=== PATIENT | male | born 1965 | race Two or more races ===

== ENCOUNTER → 2017-09-27 | Outpatient (CLI) | payer OTHER ==
[~2017-09-27] VITALS: Ht 152.4 cm; Wt 89.8 kg
[~2017-09-27] MED LIST: AMOX1TAB12 PO; BUCALSEP SPRAY30 ML MM; DOXYCYCLINE HY100 MG PO; HYDROCHLOROTH12.5 M1; HYDROCHLOROTH12.5 M1 PO; LOTREL 5-20 MG1 CAP; LOTREL 5-20 MG1 CAP PO; ZITHROMAX200 MG PO; ZOCOR20 MG PO
== END | disposition home or self-care (01) ==
LOC: PPHC 09:02
DX: I10 Essential (primary) hypertension (principal); E78.4 Other hyperlipidemia

== ENCOUNTER 2018-04-13 10:16 | Outpatient (CLI) | payer OTHER | END 2018-04-13 10:22 | disposition home or self-care (01) | LOC: RAD 10:16 | DX: M54.2 Cervicalgia (principal) ==

== ENCOUNTER 2018-04-16 09:06 | Emergency (ER) | payer OTHER ==
[~2018-04-16] VITALS: Ht 165.1 cm; Wt 90.7 kg
[2018-04-16] MEDS ORDERED: MEDROLPACK PO (14:06)
== END 2018-04-16 14:17 | disposition home or self-care (01) ==
LOC: ER 09:06
DX: M62.838 Other muscle spasm (principal); I10 Essential (primary) hypertension

== ENCOUNTER 2018-06-16 10:22 | Outpatient (CLI) | payer OTHER ==
[~2018-06-16 10:22] MED LIST changes: +MEDROLPACK PO
== END 2018-06-16 10:26 | disposition home or self-care (01) ==
LOC: RAD 10:22
DX: M43.12 Spondylolisthesis, cervical region (principal)

== ENCOUNTER 2018-10-24 14:31 | Outpatient (CLI) | payer OTHER | END 2018-10-24 15:14 | disposition home or self-care (01) | LOC: MRI 14:31 | DX: M75.102 Unspecified rotator cuff tear or rupture of left shoulder, not specified as traumatic (principal); M89.012 Algoneurodystrophy, left shoulder | CPT/HCPCS: 73221 ==

== ENCOUNTER → 2019-02-12 | Emergency (ER) | payer OTHER ==
[~2019-02-12] VITALS: Ht 165.1 cm; Wt 90.7 kg
[~2019-02-12] MED LIST changes: +MEDROL4 MG PO
== END | disposition home or self-care (01) ==
LOC: ER 22:42
DX: M75.82 Other shoulder lesions, left shoulder (principal)

== ENCOUNTER 2019-04-09 07:57 | Outpatient (CLI) | payer OTHER | END 2019-04-09 08:15 | disposition home or self-care (01) | LOC: LAB 07:57 | DX: Z00.00 Encounter for general adult medical examination without abnormal findings (principal); E78.49 Other hyperlipidemia; E55.9 Vitamin D deficiency, unspecified ==

== ENCOUNTER 2019-07-29 23:59 | Emergency (ER) | payer OTHER ==
[~2019-07-29] VITALS: Ht 167.6 cm; Wt 95.3 kg
[2019-07-30] MEDS ORDERED: PROMETH-CODEIN 65 ML PO (02:42)
== END 2019-07-30 03:51 | disposition home or self-care (01) ==
LOC: ER 23:59
DX: R05 Cough (principal)

== ENCOUNTER 2019-08-18 11:35 | Emergency (ER) | payer OTHER ==
[~2019-08-18] VITALS: Ht 165.1 cm; Wt 95.3 kg
[~2019-08-18 11:35] MED LIST changes: +PROMETH-CODEIN 65 ML PO
== END 2019-08-18 17:44 | disposition home or self-care (01) ==
LOC: ER 11:35
DX: J11.1 Influenza due to unidentified influenza virus with other respiratory manifestations (principal)

== ENCOUNTER 2019-12-05 11:07 | Outpatient (CLI) | payer OTHER | END 2019-12-05 11:10 | disposition home or self-care (01) | LOC: LAB 11:07 | DX: J11.1 Influenza due to unidentified influenza virus with other respiratory manifestations (principal); J06.9 Acute upper respiratory infection, unspecified ==

== ENCOUNTER 2020-03-27 09:08 | Outpatient (CLI) | payer OTHER | END 2020-03-27 15:00 | disposition home or self-care (01) | LOC: LAB 09:08 | PROVIDERS: ATTEND General Practice | DX: Z00.8 Encounter for other general examination (principal); R10.30 Lower abdominal pain, unspecified; I10 Essential (primary) hypertension ==

== ENCOUNTER 2020-03-27 11:26 | Outpatient (CLI) | payer OTHER | END 2020-03-27 15:35 | disposition home or self-care (01) | LOC: SONOGRAMA 11:26 | PROVIDERS: ATTEND General Practice | DX: R10.30 Lower abdominal pain, unspecified (principal) ==

== ENCOUNTER 2020-04-01 09:34 | Outpatient (CLI) | payer OTHER | END 2020-04-01 09:46 | disposition home or self-care (01) | LOC: MRI 09:34 | PROVIDERS: ATTEND General Practice | DX: R93.2 Abnormal findings on diagnostic imaging of liver and biliary tract (principal) | CPT/HCPCS: 74183 ==

== ENCOUNTER 2020-08-05 08:15 | Outpatient (CLI) | payer OTHER | END 2020-08-05 08:21 | disposition home or self-care (01) | LOC: LAB 08:15 | PROVIDERS: ATTEND Internal Medicine | DX: D64.89 Other specified anemias (principal); R10.84 Generalized abdominal pain; E03.8 Other specified hypothyroidism; E78.49 Other hyperlipidemia; R80.8 Other proteinuria; E11.9 Type 2 diabetes mellitus without complications; R73.09 Other abnormal glucose ==

== ENCOUNTER 2021-07-13 08:01 | Emergency (ER) | payer OTHER ==
[~2021-07-13] VITALS: Ht 165.1 cm; Wt 98.4 kg
== END 2021-07-13 10:13 | disposition home or self-care (01) ==
LOC: ER 08:01
DX: B34.9 Viral infection, unspecified (principal); Z03.818 Encounter for observation for suspected exposure to other biological agents ruled out

== ENCOUNTER 2021-07-16 08:05 | Emergency (ER) | payer OTHER ==
[~2021-07-16] VITALS: Ht 165.1 cm; Wt 97.5 kg
[2021-07-16] MEDS ORDERED: IPRAT-ALBUT 0.5-3 ML IH (11:45)
[2021-07-16] MEDS ORDERED: BUDESONIDE0.5 MG/2 M IH (11:45)
[2021-07-16] MEDS ORDERED: MUCINEX DM ER1 EAC1 PO (11:45)
[2021-07-16] MEDS ORDERED: ZITHROMAX500 MG PO (11:45)
[2021-07-16] MEDS ORDERED: PROMETH-CODEIN 65 ML PO (11:45)
[2021-07-16] MEDS ORDERED: MEDROLPACK PO (11:45)
== END 2021-07-16 11:58 ==
LOC: ER 08:05
DX: J16.8 Pneumonia due to other specified infectious organisms (principal); J98.01 Acute bronchospasm; Z03.818 Encounter for observation for suspected exposure to other biological agents ruled out; I10 Essential (primary) hypertension

== ENCOUNTER → 2021-08-25 08:00 | Outpatient (CLI) | payer OTHER ==
[~2021-08-25 08:00] MED LIST changes: +BUDESONIDE0.5 MG/2 M IH; +IPRAT-ALBUT 0.5-3 ML IH; +MUCINEX DM ER1 EAC1 PO; +ZITHROMAX500 MG PO
== END | disposition home or self-care (01) ==
LOC: PPH VACUNA 08:00
PROVIDERS: ATTEND Emergency Medicine Pediatric Emergency Medicine
DX: Z23 Encounter for immunization (principal)

== ENCOUNTER 2021-10-30 07:45 | Outpatient (CLI) | payer OTHER | END 2021-10-30 07:49 | disposition home or self-care (01) | LOC: LAB 07:45 | PROVIDERS: ATTEND General Practice | DX: E78.5 Hyperlipidemia, unspecified (principal); Z00.00 Encounter for general adult medical examination without abnormal findings; E55.9 Vitamin D deficiency, unspecified; N39.0 Urinary tract infection, site not specified; R42 Dizziness and giddiness; R10.2 Pelvic and perineal pain; Z12.5 Encounter for screening for malignant neoplasm of prostate ==

== ENCOUNTER 2022-01-07 08:33 | Emergency (ER) | payer OTHER ==
[~2022-01-07] VITALS: Ht 165.1 cm; Wt 95.3 kg
[2022-01-07] MEDS ORDERED: COZAAR25 MG PO (08:41)
[2022-01-07] MEDS ORDERED: AMOX-CLAV 875-1 EACH PO (10:54)
[2022-01-07] MEDS ORDERED: KETO10TA2 PO (10:54)
[2022-01-07] MEDS ORDERED: MEDROLPACK PO (11:01)
== END 2022-01-07 11:35 | disposition home or self-care (01) ==
LOC: ER 08:33
DX: K12.2 Cellulitis and abscess of mouth (principal); Z20.822 Contact with and (suspected) exposure to COVID-19

== ENCOUNTER 2022-03-16 16:31 | Outpatient (CLI) | payer OTHER ==
[~2022-03-16 16:31] MED LIST changes: +AMOX-CLAV 875-1 EACH PO; +COZAAR25 MG PO; +KETO10TA2 PO
== END 2022-03-16 16:37 | disposition home or self-care (01) ==
LOC: LAB 16:31
PROVIDERS: ATTEND General Practice
DX: Z20.822 Contact with and (suspected) exposure to COVID-19 (principal)

== ENCOUNTER 2022-06-20 08:09 | Emergency (ER) | payer OTHER ==
[~2022-06-20] VITALS: Ht 165.1 cm; Wt 90.7 kg
[2022-06-20] MEDS ORDERED: HYDROCHLOROTH12.5 MG PO (08:21)
[2022-06-20] MEDS ORDERED: LOTREL 5-20 MG1 CAP PO (08:21)
[2022-06-20] MEDS ORDERED: CLEOCIN HCL300 MG PO (08:59)
== END 2022-06-20 09:15 | disposition home or self-care (01) ==
LOC: ER 08:09
DX: L60.0 Ingrowing nail (principal); I10 Essential (primary) hypertension

== ENCOUNTER 2022-12-19 07:36 | Emergency (ER) | payer OTHER ==
[~2022-12-19] VITALS: Ht 165.1 cm; Wt 93.0 kg
[~2022-12-19 07:36] MED LIST changes: +CLEOCIN HCL300 MG PO; +HYDROCHLOROTH12.5 MG PO
[2022-12-19] MEDS ORDERED: BENZONATATE200 M1 PO (10:37)
[2022-12-19] MEDS ORDERED: ALBUTEROL0.63 MG/3 IH (11:41)
== END 2022-12-19 12:05 | disposition home or self-care (01) ==
LOC: ER 07:36
DX: R05.8 Other specified cough (principal); R09.3 Abnormal sputum

== ENCOUNTER 2023-07-03 15:47 | Inpatient (IN) | payer OTHER ==
[~2023-07-03] VITALS: Ht 167.6 cm; Wt 95.3 kg
[~2023-07-03 15:47] MED LIST changes: +ALBUTEROL0.63 MG/3 IH; +BENZONATATE200 M1 PO
[2023-07-03] MEDS ORDERED: TAMS0.4C PO (16:27)
[2023-07-03 18:00] LABS: HEMATOCRIT 43.3 % (39.0-48.0); HEMOGLOBIN 14.2 g/dL (13-16.00); MEAN CELL VOLUME 85.3 fL (80.0-100.00); MEAN CORPUSCULAR HEMOGLOBIN 28.1 pg (27.00-32.0); MEAN CORPUSCULAR HGB CONC 32.9 g/dl (32.0-36.0); PLATELET COUNT 352 K/uL (150-450); RED BLOOD COUNT 5.08 M/uL (4.00-6.00); RED CELL DISTRIBUTION WIDTH 13.6 % (11.5-14.5)
[2023-07-03 18:20] LABS: ABG PH 7.411 (7.35-7.45); ABG pCO2 44.1 mmHg (35-45); BASE EXCESS 2.3 mmol/l; BICARBONATE 27.4 mmol/l (23-25); SaO2 93.1 %; Tco2 28.8 mmol/l
[2023-07-03 18:25] LABS: CALCIUM 9.5 mg/dL (8.5-10.1); CREATININE SERUM 1.11 mg/dL (0.70-1.30); GFR 68.28; POTASSIUM 4.1 mEq/L (3.5-5.1)
[2023-07-03 18:36] LABS: allen test SATISFACTORY; o2 21 %; puncture site RADIAL RIGHT
[2023-07-03 18:51] LABS: URINE APPEARANCE Clear; URINE BILIRRUBIN Negative (NEGATIVE); URINE BLOOD Negative; URINE COLOR Yellow; URINE GLUCOSE Negative (NEGATIVE); URINE LEUKOCYTE Negative; URINE NITRATE Negative; URINE PROTEIN Negative (NEGATIVE)
[2023-07-03 18:59] LABS: URINE WBC 0.7 uL (0.0-23.2)
[2023-07-03 19:00] LABS: URINE BACTERIA 2.5 uL (0.0-1933)
[2023-07-04 00:04] LABS: ABG PH 7.394 (7.35-7.45); ABG PO2 84.6 mmHg (80-100); ABG pCO2 42.5 mmHg (35-45); BASE EXCESS 0.3 mmol/l; BICARBONATE 25.4 mmol/l (23-25); SaO2 96.3 %; Tco2 26.7 mmol/l
[2023-07-04 00:57] LABS: INR 1.02; PARTIAL THROMBOPLASTIN TIME 31.8 SECONDS (22.0-34.0); PROTHROMBIN TIME 10.7 SECONDS (9.0-11.5)
[2023-07-04 05:22] LABS: allen test SATISFACTORY; o2 35 %; puncture site RADIAL LEFT
[2023-07-07 11:24] LABS: ABG PH 7.368 (7.35-7.45); ABG PO2 82.8 mmHg (80-100); ABG pCO2 42.7 mmHg (35-45); BASE EXCESS -1.4 mmol/l; SaO2 95.6 %; Tco2 25.3 mmol/l
[2023-07-07 14:44] LABS: allen test SATISFACTORY; o2 21 %; puncture site RADIAL LEFT
[2023-07-10 07:07] LABS: HEMATOCRIT 43.2 % (39.0-48.0); HEMOGLOBIN 14.8 g/dL (13-16.00); MEAN CELL VOLUME 84.1 fL (80.0-100.00); MEAN CORPUSCULAR HEMOGLOBIN 28.9 pg (27.00-32.0); MEAN CORPUSCULAR HGB CONC 34.3 g/dl (32.0-36.0); PLATELET COUNT 473 K/uL (150-450); RED BLOOD COUNT 5.14 M/uL (4.00-6.00); RED CELL DISTRIBUTION WIDTH 13.8 % (11.5-14.5)
[2023-07-10 07:37] LABS: ALBUMIN 3.8 gm/dL (3.4-5.0); BILIRUBIN TOTAL 0.41 mg/dL (0.3-1.2); CALCIUM 9.7 mg/dL (8.5-10.1); CREATININE SERUM 1.12 mg/dL (0.70-1.30); GFR 67.58; GLOBULINA 4.1 G/DL (2.4-3.5); POTASSIUM 4.44 mEq/L (3.5-5.1); TOTAL PROTEIN 7.9 gm/dL (6.4-8.2)
[2023-07-10 07:48] LABS: C-REACTIVE PROTEIN 0.51 MG/DL (0.00-0.29)
[2023-07-10] MEDS ORDERED: MEDROLPACK PO (19:02)
[2023-07-10] MEDS ORDERED: Tussi-Organidin Dm-S PO (19:02)
== END 2023-07-10 19:53 | disposition home or self-care (01) | DRG 194 ==
LOC: ER 15:47 → SURH 22:55
PROVIDERS: General Practice; Specialist; ADMIT Internal Medicine; ATTEND Internal Medicine
PROC: BW24ZZZ Computerized Tomography (CT Scan) of Chest and Abdomen (ICD-10-PCS; principal; 2023-07-03)
PROC: 4A12X4Z Monitoring of Cardiac Electrical Activity, External Approach (ICD-10-PCS; 2023-07-08)
DX: J10.00 Influenza due to other identified influenza virus with unspecified type of pneumonia (principal); J45.901 Unspecified asthma with (acute) exacerbation; E86.0 Dehydration; I10 Essential (primary) hypertension; N40.0 Benign prostatic hyperplasia without lower urinary tract symptoms; Z20.822 Contact with and (suspected) exposure to COVID-19

== ENCOUNTER 2023-09-24 09:32 | Emergency (ER) | payer OTHER ==
[~2023-09-24] VITALS: Ht 165.1 cm; Wt 93.0 kg
[~2023-09-24 09:32] MED LIST changes: +TAMS0.4C PO; +Tussi-Organidin Dm-S PO
[2023-09-24 11:48] LABS: HEMATOCRIT 39.6 % (39.0-48.0); HEMOGLOBIN 13.6 g/dL (13-16.00); MEAN CELL VOLUME 83.2 fL (80.0-100.00); MEAN CORPUSCULAR HEMOGLOBIN 28.5 pg (27.00-32.0); MEAN CORPUSCULAR HGB CONC 34.3 g/dl (32.0-36.0); PLATELET COUNT 274 K/uL (150-450); RED BLOOD COUNT 4.77 M/uL (4.00-6.00); RED CELL DISTRIBUTION WIDTH 14.5 % (11.5-14.5)
== END 2023-09-24 13:38 | disposition home or self-care (01) ==
LOC: ER 09:33
DX: J10.1 Influenza due to other identified influenza virus with other respiratory manifestations (principal); R05.9 Cough, unspecified; Z20.822 Contact with and (suspected) exposure to COVID-19; I10 Essential (primary) hypertension

== ENCOUNTER 2023-12-01 07:38 | Emergency (ER) | payer OTHER ==
[~2023-12-01] VITALS: Ht 165.1 cm; Wt 97.5 kg
[2023-12-01] MEDS ORDERED: DEXAMETHASONE SODIUM PHOSPHATE 4 MG/ML VIAL IM STA (08:32)
[2023-12-01] MEDS ORDERED: KETOROLAC TROMETHAMINE 30 MG VIAL IM STA (08:32)
[2023-12-01] MEDS ORDERED: ORPHENADRINE CITRATE 30 MG/ML AMPUL IM STA (08:33)
[2023-12-01] MEDS ORDERED: CYCLOBENZAPRINE10 MG PO (08:47)
[2023-12-01] MEDS ORDERED: GABAPENTIN100 M2 PO (08:47)
[2023-12-01] MEDS ORDERED: DICLOFENAC POTA50 MG PO (08:47)
== END 2023-12-01 08:58 | disposition home or self-care (01) ==
LOC: ER 07:39
DX: M54.41 Lumbago with sciatica, right side (principal)

== ENCOUNTER 2023-12-25 08:35 | Outpatient (CLI) | payer OTHER ==
[~2023-12-25 08:35] MED LIST changes: +CYCLOBENZAPRINE10 MG PO; +DICLOFENAC POTA50 MG PO; +GABAPENTIN100 M2 PO
== END 2023-12-25 08:36 | disposition home or self-care (01) ==
LOC: LAB 08:35
PROVIDERS: ATTEND Urology
DX: N40.0 Benign prostatic hyperplasia without lower urinary tract symptoms (principal); R97.20 Elevated prostate specific antigen [PSA]

== ENCOUNTER 2024-03-28 07:34 | Emergency (ER) | payer OTHER ==
[~2024-03-28] VITALS: Ht 165.1 cm; Wt 90.7 kg
[~2024-03-28 07:34] MED LIST changes: +GRALISE600 MG PO; +NEURONTIN300 MG PO
[2024-03-28] MEDS ORDERED: KETOROLAC TROMETHAMINE 15 MG VIAL IM STA (08:17)
[2024-03-28] MEDS ORDERED: DEXAMETHASONE SODIUM PHOSPHATE 4 MG/ML VIAL IM STA (08:17)
[2024-03-28] MEDS ORDERED: CODEINE PHOSPHATE/GUAIFENESIN 5 ML ML PO STA (08:18)
[2024-03-28] MEDS ORDERED: KETOROLAC TROMETHAMINE 30 MG VIAL ONE (08:36)
[2024-03-28] MEDS ORDERED: DEXAMETHASONE SODIUM PHOSPHATE 4 MG/ML VIAL ONE (08:37)
[2024-03-28 09:13] LABS: HEMATOCRIT 42.4 % (39.0-48.0); HEMOGLOBIN 14.3 g/dL (13-16.00); MEAN CORPUSCULAR HEMOGLOBIN 28.7 pg (27.00-32.0); MEAN CORPUSCULAR HGB CONC 33.8 g/dl (32.0-36.0); PLATELET COUNT 260 K/uL (150-450); RED BLOOD COUNT 4.98 M/uL (4.00-6.00); RED CELL DISTRIBUTION WIDTH 14.4 % (11.5-14.5)
[2024-03-28] MEDS ORDERED: PAXLOVID 300-11 EAC1 PO (10:21)
[2024-03-28] MEDS ORDERED: ZYRTEC10 M3 PO (10:21)
[2024-03-28] MEDS ORDERED: PROAIR RESPICL90 MCG IH (10:21)
[2024-03-28] MEDS ORDERED: MUCINEX DM ER1 EAC1 PO (10:21)
[2024-03-28] MEDS ORDERED: ACETAMINOPHEN500 M2 PO (10:21)
== END 2024-03-28 10:48 | disposition home or self-care (01) ==
LOC: ER 07:35
PROVIDERS: General Practice
DX: U07.1 COVID-19 (principal); I10 Essential (primary) hypertension

== ENCOUNTER → 2024-07-22 08:04 | Outpatient (CLI) | payer OTHER ==
[~2024-07-22 08:04] MED LIST changes: +ACETAMINOPHEN500 M2 PO; +PAXLOVID 300-11 EAC1 PO; +PROAIR RESPICL90 MCG IH; +ZYRTEC10 M3 PO
[2024-07-22 10:07] LABS: CREATININE SERUM 0.96 mg/dL (0.70-1.30)
[2024-07-22 10:10] LABS: PROSTATIC SPECIFIC ANTIGEN 4.77 NG/ML (0.010-4.00)
== END | disposition home or self-care (01) ==
LOC: LAB 08:04
PROVIDERS: ATTEND Urology
DX: N40.0 Benign prostatic hyperplasia without lower urinary tract symptoms (principal); R97.20 Elevated prostate specific antigen [PSA]; R31.1 Benign essential microscopic hematuria

== ENCOUNTER 2024-07-24 08:24 | Outpatient (CLI) | payer OTHER ==
[2024-07-25 10:07] LABS: free psa 1.01 ng/mL; total psa 4.2 ng/mL (0.0-4.0)
== END 2024-07-24 08:30 | disposition home or self-care (01) ==
LOC: LAB 08:24
DX: R97.20 Elevated prostate specific antigen [PSA] (principal)

== ENCOUNTER 2024-08-22 07:35 | Outpatient (CLI) | payer OTHER ==
[2024-08-22 08:01] LABS: HEMATOCRIT 41.6 % (39.0-48.0); HEMOGLOBIN 14.4 g/dL (13-16.00); MEAN CELL VOLUME 84.5 fL (80.0-100.00); MEAN CORPUSCULAR HEMOGLOBIN 29.3 pg (27.00-32.0); MEAN CORPUSCULAR HGB CONC 34.7 g/dl (32.0-36.0); PLATELET COUNT 297 K/uL (150-450); RED BLOOD COUNT 4.92 M/uL (4.00-6.00); RED CELL DISTRIBUTION WIDTH 13.6 % (11.5-14.5)
[2024-08-22 09:05] LABS: BILIRUBIN TOTAL 0.47 mg/dL (0.3-1.2); CALCIUM 9.6 mg/dL (8.5-10.1); CHOL HDL RATIO 3.2 (0-5.0); CREATININE SERUM 1.09 mg/dL (0.70-1.30); GFR 69.48; GLOBULINA 3.7 G/DL (2.4-3.5); POTASSIUM 4.82 mEq/L (3.5-5.1); TOTAL PROTEIN 7.7 gm/dL (6.4-8.2); TSH 1.13 uIU/mL (0.358-3.74)
== END 2024-08-22 07:41 | disposition home or self-care (01) ==
LOC: LAB 07:35
PROVIDERS: ATTEND Internal Medicine
DX: D64.9 Anemia, unspecified (principal); R10.9 Unspecified abdominal pain; E03.9 Hypothyroidism, unspecified; E78.5 Hyperlipidemia, unspecified; R80.9 Proteinuria, unspecified; E11.9 Type 2 diabetes mellitus without complications; N40.0 Benign prostatic hyperplasia without lower urinary tract symptoms; Z12.5 Encounter for screening for malignant neoplasm of prostate

== ENCOUNTER → 2025-05-29 08:01 | Outpatient (CLI) | payer OTHER ==
[2025-05-30 09:08] LABS: % FREE PSA 23.8 % (.)
== END | disposition home or self-care (01) ==
LOC: LAB 08:01
PROVIDERS: ATTEND Urology
DX: R97.20 Elevated prostate specific antigen [PSA] (principal); N40.1 Benign prostatic hyperplasia with lower urinary tract symptoms; R33.9 Retention of urine, unspecified

== ENCOUNTER → 2025-06-05 07:39 | Outpatient (CLI) | payer OTHER ==
[2025-06-05 08:34] LABS: BASO % 0.7 % (0.1-1.2); EOS # 0.14 (0.04-0.54); EOS % 2.6 % (0.7-7.0); LYMPH # 1.63 (1.18-3.74); LYMPH % 29.7 % (19.3-53.1); MEAN PLATELET VOLUME 9.70 fl (9.4-12.4); MONO # 0.36 (0.24-0.82); MONO % 6.6 % (4.7-12.5); NEUT # 3.30 (1.56-6.13); NEUT % 60.2 % (34.0-71.1); RED CELL DISTRIBUTION WIDTH 12.9 % (11.6-14.4)
[2025-06-05 09:15] LABS: ALT/SGPT 67.0 U/L (12-78); AST/SGOT 28.0 U/L (15-37); BILIRUBIN TOTAL 0.71 mg/dL (0.3-1.2); BUN CREA RATIO 12.0 (7.0-25.0); CREATININE SERUM 1.03 mg/dL (0.70-1.30); GFR 73.92; GLOBULINA 3.7 G/DL (2.4-3.5); GLUCOSE FASTING 88.0 mg/dL (65-100); OSMOLALITY SERUM 279.0 MOSM/KG (275-295)
[2025-06-06 09:11] LABS: hav igm Negative (Negative); hep b c Negative (Negative); hep b s ag Negative (Negative)
== END | disposition home or self-care (01) ==
LOC: LAB 07:39
PROVIDERS: ATTEND Internal Medicine Gastroenterology
DX: K76.0 Fatty (change of) liver, not elsewhere classified (principal); Z12.11 Encounter for screening for malignant neoplasm of colon; Z86.0100 Personal history of colon polyps, unspecified

== ENCOUNTER 2025-06-05 08:34 | Outpatient (CLI) | payer OTHER | END 2025-06-05 08:38 | disposition home or self-care (01) | LOC: SONOGRAMA 08:34 | PROVIDERS: ATTEND Internal Medicine Gastroenterology | DX: K76.0 Fatty (change of) liver, not elsewhere classified (principal); R74.01 Elevation of levels of liver transaminase levels ==